=== PATIENT | male | born 1965 | race Caucasian/White ===

== ENCOUNTER 2019-12-07 20:23 | Emergency (ER) | payer OTHER, SELFPAY ==
[~2019-12-07] VITALS: Ht 182.9 cm; Wt 95.3 kg
[2019-12-07 20:28] VITALS: BP 145/83
--- NOTE | 2019-12-07 20:33 | NUR ---
PT W/C ASSISTED TO BED #1
[2019-12-07] MEDS ORDERED: KETOROLAC 30 MG/ML VIAL IVP ONE (20:45)
[2019-12-07] MEDS ORDERED: NACL 0.9% 1,000 ML IV ONE (20:45)
--- NOTE | 2019-12-07 21:12 | NUR ---
PT C/O OF HEADACHE WITH DIZZINESS X 5 DAYS. DENIES ANY N/T TO FACE, FACE IS SYMMETRICAL, NO SLURRED SPEECH, DENIES ANY VISION PROBLEMS, DENIES N/V/D, DENIES SOB. PT ABLE TO AMBULATE WITH STEADY GAIT. BED IN LOWEST POSITION, SIDERAIL UP X 1. MO MED HX NKA NO MEDS
--- NOTE | 2019-12-07 21:13 | NUR ---
NASAL SWAB DONE FOR COVID AND TAKEN TO LAB
--- NOTE | 2019-12-07 21:18 | NUR ---
PAIN IS NOW 6/10 TO HEAD, DOWN FROM 8/10
[2019-12-07] MEDS ORDERED: MORPHINE SULFATE 4 MG/ML SYR IVP ONE (21:35)
--- NOTE | 2019-12-07 22:10 | NUR ---
PT STATES HIS HEADACHE IS STILL HIGH AT 7/10. MED KURERA AWARE, NO FURTHER ORDERS RECEIVED
[2019-12-07 22:16] VITALS: BP 136/85
--- NOTE | 2019-12-07 22:18 | NUR ---
Patient discharged with v/s stable. Written and verbal after care instructions given and explained. Patient alert, oriented and verbalized understanding of instructions. Ambulatory with steady gait. All questions addressed prior to discharge. ID band removed. Patient advised to follow up with PMD. Rx of MOTRIN AND NORCO given. Patient educated on indication of medication including possible reaction and side effects. Opportunity to ask questions provided and answered.
== END 2019-12-07 22:18 | disposition home or self-care (01) ==
LOC: MED 20:23 → EEVIPCON 20:23 → MED 22:18
DX: R51 Headache (principal); F17.210 Nicotine dependence, cigarettes, uncomplicated; F15.10 Other stimulant abuse, uncomplicated; Z20.828 Contact with and (suspected) exposure to other viral communicable diseases
CPT/HCPCS: 96374; 96375; 99284; C9803; J1885; J2270; J7030; U0003; 36415

== ENCOUNTER 2019-12-10 23:20 | Inpatient (IN) | payer OTHER, SELFPAY ==
[~2019-12-10] VITALS: Ht 185.4 cm; Wt 95.3 kg
[2019-12-10 23:34] VITALS: BP 92/57
[2019-12-10] MEDS ORDERED: ACETAMINOPHEN EXTRA STRENGTH 500 MG TAB ONE (23:36)
--- NOTE | 2019-12-10 23:47 | NUR ---
53 Y/O MALE BIBA FROM HOME. PRESENTS TO ED, C/O FEVER, CHILLS AND BODY ACHES X1 WEEK. PT C/O GENERAL WEAKNESS R/T BODY ACHES. TAKES MOTRIN 800 AND NORCO 5 FOR PAIN. PT C/O NAUSEA BUT DENIES VOMITING. BS ACTIVE X4 QUADRANTS. PT DENIES ANY SOB/DIFFICULTY BREATHING. DENIES CHEST PAIN. FEVER DURING TRIAGE IS 101.2. ERMD MADE AWARE. WILL CONTINUE TO MONITOR.
--- NOTE | 2019-12-10 23:53 | NUR ---
PT ENDORSED THE USE OF METH "A NICKEL" LAST TUESDAY.
[2019-12-10] MEDS ORDERED: ACETAMINOPHEN EXTRA STRENGTH 500 MG TAB PO ONE (23:55)
[2019-12-11] MEDS ORDERED: NACL 0.9% 1,000 ML IV ONE
[2019-12-11] MEDS ORDERED: cefTRIAXone 1,000 MG VIAL ONE (00:02)
[2019-12-11 00:35] LABS: HEMATOCRIT 38.1 % (36-52); MEAN CORPUSCULAR HEMOGLOBIN 30 pg (27-31); MEAN CORPUSCULAR HGB CONC 34 g/dL (33-37); MEAN CORPUSCULAR VOLUME 86.6 fL (80-94); RED BLOOD CELL COUNT(AUTO) 4.41 MIL/uL (4.20-6.10); RED CELL DISTRIBUTION WIDTH 15.4 % (11.6-13.7)
[2019-12-11 00:53] LABS: ALBUMIN 1.7 g/dL (3.4-5.0); ANION GAP 15.7 (8-16); CARBON DIOXIDE 21.4 mmol/L (21-32); POTASSIUM 3.1 mmol/L (3.5-5.1); TOTAL BILIRUBIN 5.6 mg/dL (0.0-1.0)
[2019-12-11 00:54] LABS: LACTATE DEHYDROGENASE 235 U/L (85-227)
--- NOTE | 2019-12-11 00:57 | NUR ---
URINE COLLECTED AND SENT TO LAB AT THIS TIME
[2019-12-11 01:10] LABS: WHITE BLOOD COUNT (AUTO) 24.5 K/uL (4.8-10.8)
[2019-12-11 01:11] LABS: PLATELET COUNT (AUTO) 55 K/uL (140-450)
[2019-12-11 01:12] LABS: LYMPHOCYTES % (MANUAL) 7 % (20-46); MONOCYTES % (MANUAL) 2 % (5-12)
[2019-12-11 01:16] LABS: PROTHROMBIN TIME 11.4 secs (10.8-13.4)
[2019-12-11] MEDS ORDERED: NACL 0.9% 2,000 ML IV ONE (01:20)
[2019-12-11] MEDS ORDERED: HYDR-5122 PO (01:39)
[2019-12-11] MEDS ORDERED: IBUP-1842 PO (01:39)
[2019-12-11 01:59] LABS: APPEARANCE,URINE CLOUDY (CLEAR); BILIRUBIN,URINE 3+ (NEGATIVE); BLOOD, URINE 2+ (NEGATIVE); COLOR,URINE DARK YELLOW (YELLOW); LEUKOCYTE ESTERASE ,URINE 2+ (NEGATIVE); NITRITE, URINE NEGATIVE (NEGATIVE); PH,URINE 5.5 (5.0-9.0); UGLUCOSE NEGATIVE (NEGATIVE)
[2019-12-11 02:32] LABS: RBC,URINE TOO NUMEROUS TO COUN /HPF (0-5); WBC,URINE TOO MANY TO COUNT /HPF (0-5)
[2019-12-11 04:45] VITALS: BP 107/71
--- NOTE | 2019-12-11 04:45 | NUR ---
RECEIVED BEDSIDE REPORT FROM ED NURSE JEROMY. PATIENT WAS BROUGHT INTO UNIT VIA GURNEY. PATIENT IS ALERT AND ORIENTED. PATIENT IS AMBULATORY. NO SOB OR DISTRESS NOTED ON ROOM AIR. IV ACCESS ON RIGHT AC 20 GAUGE, PATENT AND INTACT. INITIAL ASSESSMENT DONE. SKIN IS INTACT. INITIAL VITAL SIGNS TAKEN. MRSA SWAB DONE AND SENT TO LAB. ORIENTED TO ROOM. ADMISSION ASSESSMENT DONE. BED IN LOW, BED LOCKED. SAFETY MEASURES IN PLACE. CALL LIGHT PLACED WITHIN PATIENT REACH. WILL CONTINUE TO MONITOR PATIENT.
--- NOTE | 2019-12-11 04:50 | NUR ---
PT ADMITTED TO [facility] RM #[id number]. TRANSFERRED VIA [facility] WITH DEBBY BAILON. PT AT STABLE CONDITION. REPORT GIVEN TO LB JUAREZ. TRANSFER OF CARE AT THIS TIME.
--- NOTE | 2019-12-11 05:05 | NUR ---
PAGED DR. WRAY FOR ADMISSION ORDERS. WILL WAIT FOR CALL BACK.
--- NOTE | 2019-12-11 05:35 | NUR ---
PAGED DR. WRAY AGAIN FOR ADMISSION ORDERS. WILL WAIT FOR CALL BACK.
--- NOTE | 2019-12-11 05:55 | NUR ---
PAGED FOR MD FOR 3RD TIME. DR. WRAY PICKED UP AND SAID HE WILL PUT IN ORDERS.
[2019-12-11] MEDS ORDERED: DOCUSATE SODIUM 250 MG GELCAP PO PRN (06:15)
[2019-12-11] MEDS ORDERED: POTASSIUM CHLORIDE 10 MEQ TABER PO PRN (06:15)
[2019-12-11] MEDS ORDERED: MAGNESIUM OXIDE 400 MG TAB PO PRN (06:15)
[2019-12-11] MEDS ORDERED: ACETAMINOPHEN 650 MG SUPP RC PRN (06:15)
[2019-12-11] MEDS ORDERED: MAG SULF 2000 MG/WATER PREMIX 50 ML IV PRN (06:15)
--- NOTE | 2019-12-11 06:40 | NUR ---
MAG SULF WAS ACCIDENTLY PULLED OUT OF OMNICELL BUT NOT GIVEN. CHARGE NURSE AWARE AND CO-SIGNED.
--- NOTE | 2019-12-11 06:44 | NUR ---
KDUR 40MEQ ADMINISTERED FOR POTASSIUM LEVEL OF 3.1. WILL CONTINUE TO MONITOR PATIENT.
--- NOTE | 2019-12-11 06:53 | NUR ---
PATIENT IN STABLE CONDITION. NO DISTRESS NOTED. VISIBLE CHEST RISE AND FALL NOTED. CALL LIGHT WITHIN PATIENT REACH. WILL ENDORSE TO AM SHIFT NURSE FOR CONTINUITY OF CARE.
--- NOTE | 2019-12-11 07:05 | NUR ---
RECEIVED REPORT FROM NIGHT NURSE FOR CONTINUITY OF CARE, PT IS AA0X4, PT IS STABLE, NO SIGNS OF DISTRESS NOTED, RESPIRATIONS ARE EVEN AND UNLABORED ON ROOM AIR, PT HAS RIGHT AC 20G SALINE LOCK, SAFETY MEASURES IN PLACE, PT AMBULATES, INTRODUCE SELF AND UPDATED WHITEBOARD, ALL NEEDS MET AT THIS TIME, WILL CONTINUE TO MONITOR, CALL LIGHT WITHIN REACH.
[2019-12-11 08:00] VITALS: BP 99/53
[2019-12-11] MEDS: HYDROcodone/APAP 5/325 MG 1 TAB TAB PO SCH ×3 (09:37→17:12)
--- NOTE | 2019-12-11 09:40 | NUR ---
ADMINISTERED SCHEDULED MEDICATION, MEDICATION EDUCATION GIVEN, PT VERBALIZED UNDERSTANDING, PT TOLERATED WELL, PT IS STABLE, NO SIGNS OF RESPIRATORY DISTRESS NOTED, RESPIRATIONS ARE EVEN AND UNLABORED ON ROOM AIR, CALL LIGHT WITHIN REACH.
--- NOTE | 2019-12-11 09:57 | NUR ---
NETWORK SECURITY CONSULTANT NOTE: Basic Screen: Yes High Risk DC Screen Valinda: KAREN BORDEN Home Relationship: FRIEND/ROOMMATE Pre-Admission Living Arrangements: Lives with Other Prior ADL Independent Current Home Health Name/Tel: N/A Current DME/02 Name/Tel: N/A Current Hospice Name/Tel: N/A Current Dialysis Name/Tel: N/A Healthcare Decision Maker: Patient Advance Directive No Physician Orders for Life Sustaining Treatment Form No Patient/Family Have Educational Needs No Discipline: Case Mgt/Social Svcs Tentative Discharge Plan/Destination: No Needs Identified Will require assistance post discharge: No Referred to Cable Hooker: No Tentative Discharge Plan Summary: PATIENT IS A 53-YEAR-OLD MALE ADMITTED FOR UTI. PATIENT HAS NO PERTINENT PMHX. PATIENT WAS ADMITTED FROM HOME WHERE HE HAS A ROOMMATE. SW CONTACTED PATIENT'S FRIEND KAREN BORDEN [phone]. PER KAREN, PATIENT IS INDEPENDENT WITH ALL ADLS AND REPORTS NO HISTORY OF SUBSTANCE ABUSE OR MENTAL HEALTH. TENTATIVE DISCHARGE PLAN IS FOR PATIENT TO RETURN HOME. NO FURTHER NEEDS IDENTIFIED. Signature: TRICIA ROMAN Date: Dec 11, 2019 Time: 09:53
--- NOTE | 2019-12-11 10:45 | NUR ---
PATIENT HAS BEEN SCREENED AND CATEGORIZED MODERATE NUTRITION RISK. PATIENT WILL BE SEEN WITHIN 3-5 DAYS OF ADMISSION. 12/13/19 12/15/[address]
--- NOTE | 2019-12-11 11:21 | NUR ---
PT ASLEEP IN BED, PT IS STABLE, NO SIGNS OF DISTRESS NOTED, RESPIRATIONS ARE EVEN AND UNLABORED ON ROOM AIR, CALL LIGHT WITHIN REACH.
[2019-12-11 12:00] VITALS: BP 115/65
--- NOTE | 2019-12-11 12:14 | NUR ---
RECEIVED TORB FOR NORMAL SALINE 75ML/H, IV FLUIDS, REGULAR DIET, WILL INPUT ORDERS AND CARRY OUT.
[2019-12-11] MEDS: NACL 0.9% 1,000 ML IV SCH (12:39)
--- NOTE | 2019-12-11 12:47 | NUR ---
ADMINISTERED SCHEDULED MEDICATION AND IV FLUIDS, MEDICATION EDUCATION GIVEN, PT VERBALIZED UNDERSTANDING, PT TOLERATED WELL, PT IS STABLE, CALL LIGHT WITHIN REACH.
--- NOTE | 2019-12-11 12:58 | NUR ---
DC PLANNIN YRS OLD MALE PATIENT WAS ADMITTED FROM HOME WITH A DX OF UTI ,URINE TEST 4+ BACTERIA. PT HAS NO MEDICAL HISTORY, AND SMOKER 1 PACK PER DAY. CXR NORMAL . ADMINISTERED IVF AND IV ABX WITH ROCEPHIN. DC PLAN TO GO HOME WHEN STABLE CM TO FOLLOW. Addendum: 12/13/19 at 1156 by Renee Holley CM DC PLANNING: WBC TRENDING DOWN TO 14.5 CONTINUE WITH IV ABX ROCEPHIN, IVF, IV ANTIEMETICS AND PAIN MANAGEMENT. MONITOR TEMPERATURE CURVE AND FOLLOW FINAL BLOOD AND URINE CULTURE RESULT. CONSULTED WITH OPAL CHAVEZ . DC PLAN AWAITING FOR FINAL CULTURE RESULTS. CM TO FOLLOW Addendum: 12/17/19 at 1350 by Renee Holley CM DC PLANNING: CALLED [facility] SPOKE WITH THE CM RACHEL AT [phone] UPDATED CLINICAL INFO AND THE ORDER FOR SNF PER RACHEL WILL CHECK THE SNF CONTRACTED TO THE INSURANCE AND CALL BACK . Addendum: 12/17/19 at 1613 by Renee Holley CM DC PLANNING: STILL WAITING FOR RACHEL CM TO CALL BACK ,UNABLE TO REACH HIM AND TO LEAVE A MESSAGE. THE PHONE HAS A BUSY TONE ALL DAY CALLED [facility] [phone] SPOKE WITH RICK ROMAN TO HELP ME BECAUSE THE SPELLING OF PATIENT IS WRONG AND UNABLE TO PROVIDE ANY INFORMATION. CM TO FOLLOW . FAXED [facility] CM TO FOLLOW Addendum: 12/17/19 at 6823 by Renee Holley CM DC PLANNING : CALLED [facility] [phone] SPOKE WITH KAMI ON ADMISSION STATED THEY ARE NOT ACCEPTING ANY PATIENT AT THIS TIME BECAUSE OF COVID. FAXED TO [facility] [phone] SPOKE WITH BERTIN STATED THEY ARE NOT ACCEPTING ANY PATIENT BECAUSE THEY HAVE NO ISO ROOM PER THEIR PROTOCOL THEY HAVE TO ISOLATE EVERYONE AND NO ISO BED. CM TO FOLLOW Addendum: 12/18/19 at 1217 by Renee Holley CM DC PLANNING: CALLED [phone] [facility] SPOKE WITH RACHEL FAULKNER REQUESTED WHETHER PT IS USING THE HMO OR THE PPO .CHECKED WITH [facility] ADMITTING CLARIFIED PT IS USING HMO. PER RACHEL 3 SNFS' CLOSE TO THE PT'S RESIDENT, AND [facility] AND [facility]. SPOKE WITH PT AND PT'S [phone] STATED DON'T WANT TO GO FAR AWAY FROM HOME. I EXPLAINED THAT IT IS DIFFICULT TO GET A BED IN SNF BECAUSE OF COVID-19 AND INSOLATION. WILL CHECK ALL THE SNF'S IF NOT FIND ONE PT WILL GO HOME WITH HOME HEALTH. FAXED TO [facility] [phone] SPOKE WITH EMERITA WAGNER ISO BED. FAXED TO [facility] FAXED ALL THE PAPER WORK TO [phone] [facility] SPOKE WITH ISABELA REVIEWING THE CASE AND WILL CALL BACK. Addendum: 12/18/19 at 1429 by Renee Holley CM DC PLANNING: RECEIVED A CALL FROM [facility] SPOKE WITH LIBBY GATES REVIEWING THE CASE AND WILL CALL BACK . PROVIDE CM'S NUMBER FOR AUTHORIZATION . CM TO FOLLOW Addendum: 12/18/19 at 1656 by Renee Holley CM DC PLANNING: CALLED [facility] [phone] SPOKE WITH [facility] ADMISSION COORDINATOR STILL WAITING AUTHORIZATION FROM [place] TO GET THE BED NUMBER. SPOKE WITH RACHEL GATES HE WILL CALL THEM PROVIDE THE ADMISSION NUMBER WILL FOLLOW UP . RACHEL FAULKNER PROVIDE AUTH #[id number] FOR [facility] TRANSPORT. Addendum: 12/18/19 at 1712 by Renee Holley CM DC PLANNING: PT IS ACCEPTED AT [facility] THE [address] , CAN GO TO ROOM 11 # TO GIVE REPORT [phone] [place] ARRANGED TRANSPORT WITH [facility] Addendum: 12/18/19 at 1747 by Renee Holley CM DC PLANNING ARRANGE TRANSPORT WITH [facility] [phone] SPOKE WITH LILLIANA LYN TIME WILL BE BETWEEN 6:30 TO 7:30 NOTIFIED MARGE CHARGE NURSE.
--- NOTE | 2019-12-11 14:51 | NUR ---
PT TRANSFERRED TO MED SURG, REMOVED TELEMONITOR AND INFORM PATIENT, PT WAS ASLEEP, PT IS STABLE, NO SIGNS OF DISTRESS NOTED, RESPIRATIONS ARE EVEN AND UNLABORED ON ROOM AIR, CALL LIGHT WITHIN REACH.
--- NOTE | 2019-12-11 15:55 | NUR ---
PT ASLEEP IN BED, PT IS STABLE, NO SIGNS OF DISTRESS NOTED, RESPIRATIONS ARE EVEN AND UNLABORED ON ROOM AIR, CALL LIGHT WITHIN REACH.
[2019-12-11 16:00] VITALS: BP 106/65
--- NOTE | 2019-12-11 17:13 | NUR ---
ADMINISTERED SCHEDULED MEDICATION, MEDICATION EDUCATION GIVEN, PT VERBALIZED UNDERSTANDING, PT TOLERATED WELL, PT IS STABLE, NO SIGNS OF DISTRESS NOTED, RESPIRATIONS ARE EVEN AND UNLABORED ON ROOM AIR, CALL LIGHT WITHIN REACH.
--- NOTE | 2019-12-11 19:30 | NUR ---
GAVE REPORT TO NIGHT NURSE FOR CONTINUITY OF CARE, PT IS STABLE
--- NOTE | 2019-12-11 19:35 | NUR ---
RECEIVED PT SLEEPING ON BED, EASILY AROUSABLE, DENIES ANY PAIN, IVF INFUSING WELL, SAFETY MEASURES IN PLACE, CALL LIGHT WITHIN REACH.
--- NOTE | 2019-12-11 21:42 | NUR ---
PT ASLEEP, NO DISTRESS NOTED, REPORT GIVEN TO ALTON NEGRETE FOR CONTINUITY OF CARE.
--- NOTE | 2019-12-11 21:43 | NUR ---
RECD. RESTING IN BED, SLEEPING COMFORTABLY. RESPIRATION EVEN AND UNLABORED. IV OF NS AT 75 ML/HR INFUSING RIGHT AC G20. NO APPEARANCE OF PAIN NOTED 0/10.
--- NOTE | 2019-12-11 22:00 | NUR ---
Patient's Plan of Care was discussed and reviewed with PURIFYING PLANT OPERATOR: PENELOPE LEAL
[2019-12-11] MEDS: cefTRIAXone 2,000 MG in DEXTROSE 5% 100 ML IV SCH (22:38)
--- NOTE | 2019-12-12 | NUR ---
STILL SLEEPING COMFORTABLY IN BED.
[2019-12-12] MEDS: NACL 0.9% 1,000 ML IV SCH ×3 (01:40→21:19)
--- NOTE | 2019-12-12 03:00 | NUR ---
AWAKE, APPLE GIVEN REQUESTED. NOTED URINE IN THE URINAL, LOOKS CONCENTRATED. ENCOURAGED TO DRINK MORE FLUIDS, CRANBERRY JUICES AND WATER GIVEN.
[2019-12-12 06:15] VITALS: BP 147/82
[2019-12-12] MEDS: ACETAMINOPHEN 325 MG TAB PO PRN ×3 (06:21→23:37)
[2019-12-12 07:07] LABS: BASOPHILS % (AUTO) 0.3 % (0.0-2.0); EOSINOPHILS % (AUTO) 0.2 % (0.0-4.0); HEMATOCRIT 34.8 % (36-52); HEMOGLOBIN 11.8 g/dL (12.0-18.0); LYMPHOCYTES % (AUTO) 7.1 % (20.5-51.1); MEAN CORPUSCULAR HEMOGLOBIN 30 pg (27-31); MEAN CORPUSCULAR HGB CONC 34 g/dL (33-37); MEAN CORPUSCULAR VOLUME 87.1 fL (80-94); MONOCYTES % (AUTO) 7.1 % (1.7-9.3); NEUTROPHILS # (AUTO) 12.4 K/uL (1.8-7.7); NEUTROPHILS % (AUTO) 85.3 % (42.2-75.2); PLATELET COUNT (AUTO) 81 K/uL (140-450); RED BLOOD CELL COUNT(AUTO) 3.99 MIL/uL (4.20-6.10); RED CELL DISTRIBUTION WIDTH 15.2 % (11.6-13.7); WHITE BLOOD COUNT (AUTO) 14.5 K/uL (4.8-10.8)
--- NOTE | 2019-12-12 07:26 | NUR ---
RECEIVED PATIENT FROM RUN LEAD NURSE FOR CONTINUITY OF CARE. PATIENT IS CURRENTLY ASLEEP. RESPIRATIONS EVEN AND UNLABORED, ROOM AIR. HAS FEVER PER PM NURSE, 100.6. TYLENOL WAS GIVEN. VISIBLE CHEST RISE AND FALL NOTED. ON MED-SURGE. ABDOMEN SOFT AND NONTENDER. REGULAR DIET. SKIN WARM, DRY, AND INTACT, IV RIGHT AC G20, RUNNING NS AT 70 ML/HR. UNIVERSAL FALL PRECAUTION. BED IN LOW POSITION. CALL LIGHT IS WITHIN REACH. WILL CONTINUE TO MONITOR.
--- NOTE | 2019-12-12 07:44 | NUR ---
PM NURSE CHECKED TEMPERATURE AGAIN, IT'S 100.0. COOLING MEASURES IN PLACE. PATIENT IS EATING BREAKFAST AT THIS TIME.
[2019-12-12 08:00] VITALS: BP 125/79
[2019-12-12 08:17] LABS: ANION GAP 13.9 (8-16); CARBON DIOXIDE 22.4 mmol/L (21-32); CREATININE 1.4 mg/dL (0.6-1.3); POTASSIUM 3.3 mmol/L (3.5-5.1)
[2019-12-12] MEDS: HYDROcodone/APAP 5/325 MG 1 TAB TAB PO SCH ×3 (08:18→17:01)
--- NOTE | 2019-12-12 08:18 | NUR ---
GIVEN NORCO MAK PER MD ORDER. EXPLAINED MEDICATION. COOLING MEASURES GIVEN AGAIN. WILL REASSESS TEMPERATURE AND PAIN.
[2019-12-12 08:24] LABS: ALBUMIN 1.4 g/dL (3.4-5.0); TOTAL BILIRUBIN 4.6 mg/dL (0.0-1.0)
--- NOTE | 2019-12-12 09:47 | NUR ---
RECHECKED TEMPERATURE. 98.1, ORALLY. WILL REASSESS TEMPERATURE AGAIN.
--- NOTE | 2019-12-12 11:15 | NUR ---
RECHECKED TEMPERATURE - 98.9, ORALLY. NO FEVER. WILL CONTINUE TO MONITOR.
--- NOTE | 2019-12-12 12:33 | NUR ---
GIVEN SCHEDULED NORCO. RECHECKED TEMP 100.0. GIVEN TYLENOL PO. COOLING MEASURES IN PLACE.
--- NOTE | 2019-12-12 12:38 | NUR ---
RECEIVED A VERBAL ORDER FROM DR. URBINA FOR 40 MEQ KDUR TO COVER K LEVEL OF 3.3. WILL CARRY OUT ORDER. IS ON THE PHONE SPEAKING WITH
[2019-12-12] MEDS ORDERED: POTASSIUM CHLORIDE 10 MEQ TABER PO SCH (13:00)
--- NOTE | 2019-12-12 13:16 | NUR ---
GIVEN 40 MEQ KDUR FOR POTASSIUM LEVEL 3.3; EXPLAINED MED TO PT, PT VERBALIZED UNDERSTANDING. ALSO COOLING MEASURES GIVEN.
--- NOTE | 2019-12-12 13:30 | NUR ---
RECHECKED TEMPERATURE: 99.7. COOLING MEASURES GIVEN. WILL RECHECK TEMP AGAIN
--- NOTE | 2019-12-12 14:57 | NUR ---
RECHECKED TEMPERATURE - 98.9. NO FEVER. WILL CONTINUE TO MONITOR
--- NOTE | 2019-12-12 15:25 | NUR ---
RETURNED FROM CT SCAN
--- NOTE | 2019-12-12 16:26 | NUR ---
RECHECKED TEMPERATURE: 98.4, TEMPORAL SCAN. AFEBRILE.
--- NOTE | 2019-12-12 16:45 | NUR ---
TRANSFERRED FROM ROOM 120A TO 119A.
--- NOTE | 2019-12-12 17:01 | NUR ---
GIVEN NORCO SCHEDULED.
--- NOTE | 2019-12-12 18:35 | NUR ---
RECHECKED TEMPERATURE - 99.4. COOLING MEASURES IN PLACE.
--- NOTE | 2019-12-12 19:10 | NUR ---
ENDORSED PATIENT TO THE VINYL FLOORING INSTALLER NURSE FOR CONTINUITY OF CARE. PATIENT IS ASLEEP AT THIS TIME. PATIENT IS IN STABLE CONDITION.
[2019-12-12] MEDS: cefTRIAXone 2,000 MG in DEXTROSE 5% 100 ML IV SCH (21:19)
--- NOTE | 2019-12-12 23:40 | NUR ---
PATIENT HAS TEMPERATURE OF 101.8, PRN TYLENOL 650 MG PO GIVEN ORDERED. COOLING MEASURES ALSO PROVIDED AND INSTRUCTED THE PT NOT TO BUNDLE HIMSELF WITH THE SHEETS AND BLANKET TO COOL DOWN. PT VERBALIZED UNDERSTANDING. WILL CONTINUE TO MONITOR THE PT. CALL LIGHT WITHIN REACH.
[2019-12-13] VITALS: BP 136/87
--- NOTE | 2019-12-13 00:40 | NUR ---
RE CHECKED PT TEMPERATURE AFTER THE TYLENOL AND COOLING MEASURE. PT LATEST TEMP IS NOW 100.3. WILL CONTINUE COOLING MEASURES AND INSTRUCTED PT NOT TO BUNDLE UP WITH BLANKET AND ALSO TO DRINK MORE FLUID. PT COMPLIANT WITH CARE. WILL CONTINUE TO MONITOR.
--- NOTE | 2019-12-13 03:40 | NUR ---
PT ASLEEP AND NO COMPLAIN AT THIS TIME. CALL LIGHT WITHIN REACH.
--- NOTE | 2019-12-13 05:30 | NUR ---
PT WOKE UP AND ASKED FOR COFFEE WITH CREAMER AND SUGAR. RE CHECKED THE PT TEMPERATURE-99.1. NO COMPLAIN AT THIS TIME. WILL CONTINUE POC.
--- NOTE | 2019-12-13 06:21 | NUR ---
PT STABLE AND NOT IN ANY DISTRESS. NO COMPLAIN AT THIS TIME. ALL NEEDS ATTENDED. CALL LIGHT WITHIN REACH. WILL ENDORSE THE PT TO THE ONCOMING RN FOR CONTINUITY OF CARE.
[2019-12-13 06:41] LABS: BASOPHILS # (AUTO) 0.1 K/uL (0.00-0.22); BASOPHILS % (AUTO) 0.4 % (0.0-2.0); EOSINOPHILS % (AUTO) 0.2 % (0.0-4.0); HEMATOCRIT 34.4 % (36-52); HEMOGLOBIN 11.6 g/dL (12.0-18.0); LYMPHOCYTES # (AUTO) 1.1 K/uL (2.0-11.5); LYMPHOCYTES % (AUTO) 8.1 % (20.5-51.1); MEAN CORPUSCULAR HEMOGLOBIN 30 pg (27-31); MEAN CORPUSCULAR HGB CONC 34 g/dL (33-37); MEAN CORPUSCULAR VOLUME 87.7 fL (80-94); MONOCYTES # (AUTO) 1.2 K/uL (0.8-1.0); MONOCYTES % (AUTO) 8.9 % (1.7-9.3); NEUTROPHILS # (AUTO) 11.4 K/uL (1.8-7.7); NEUTROPHILS % (AUTO) 82.4 % (42.2-75.2); PLATELET COUNT (AUTO) 121 K/uL (140-450); RED BLOOD CELL COUNT(AUTO) 3.92 MIL/uL (4.20-6.10); RED CELL DISTRIBUTION WIDTH 15.5 % (11.6-13.7); WHITE BLOOD COUNT (AUTO) 13.8 K/uL (4.8-10.8)
--- NOTE | 2019-12-13 07:05 | NUR ---
RECEIVED REPORT FROM AIRCRAFT METALSMITH NURSE. PT IS CURRENTLY LAYING IN BED ASLEEP WITH NO NO SIGNS OF DISTRESS NOTED. PT IS ALERT ORIENTATED TO PERSON, PLACE, TIME, AND DATE. RESPIRATIONS ARE EVEN AND UNLABORED ON ROOM AIR. SKIN IS INTACT WITH, IV PATENT, ASYMPTOMATIC, AND INFUSING PER ORDER. SAFETY MEASURES IN PLACE, BED IS IN LOW SEMI-FOWLERS POSITION, CALL LIGHT WITHIN REACH AND WILL CONTINUE TO MONITOR.
[2019-12-13 07:21] LABS: ALBUMIN 1.5 g/dL (3.4-5.0); ANION GAP 12.5 (8-16); CARBON DIOXIDE 24.7 mmol/L (21-32); CREATININE 1.1 mg/dL (0.6-1.3); POTASSIUM 4.2 mmol/L (3.5-5.1); TOTAL BILIRUBIN 4.2 mg/dL (0.0-1.0)
[2019-12-13] MEDS: HYDROcodone/APAP 5/325 MG 1 TAB TAB PO SCH ×3 (08:41→16:49)
--- NOTE | 2019-12-13 08:43 | NUR ---
ADMINISTERED MEDICATIONS PER ORDER AND TOLERATED WELL. PT STATES THAT HE WANTS CHEERIOS CEREAL WITH MILK AND ICE. SAFETY MEASURES IN PLACE AND WILL CONTINUE TO MONITOR.
--- NOTE | 2019-12-13 10:15 | NUR ---
PT STATES THAT HE FEELS NAUSEOUS AND HAS BEEN DRY HEAVING. PT REQUESTED SPRITE AND ICE TO SETTLE HIS STOMACH. SAFETY MEASURES IN PLACE AND WILL CONTINUE TO MONITOR.
--- NOTE | 2019-12-13 12:01 | NUR ---
PT IS CURRENTLY LAYING DOWN IN BED WITH NO SIGNS OF DISTRESS AT THIS TIME. PT WAS CHANGED AND GIVEN SPONGE BATH, TOLERATED WELL. SAFETY MEASURES IN PLACE AND WILL CONTINUE TO MONITOR.
[2019-12-13] MEDS: ONDANSETRON 4 MG/2 ML VIAL IVP PRN ×2 (13:10→17:44)
--- NOTE | 2019-12-13 13:12 | NUR ---
ADMINISTERED ZOFRAN FOR NAUSEA AND VOMITING. PT REFUSED HIS NORCO HE STATES THAT ITS MAKING HIM NAUSEOUS. SAFETY MEASURES IN PLACE AND WILL CONTINUE OT MONITOR.
--- NOTE | 2019-12-13 14:15 | NUR ---
PT IS CURRENTLY LAYING IN BED WITH NO SIGNS OF DISTRESS AT THIS TIME. PT STATED THAT NAUSEA FEELS BETTER AFTER ZOFRAN WAS GIVEN. SAFETY MEASURES IN PLACE AND WILL CONTINUE TO MONITOR.
[2019-12-13 16:00] VITALS: BP 119/81
[2019-12-13] MEDS: ACETAMINOPHEN 325 MG TAB PO PRN (16:47)
--- NOTE | 2019-12-13 16:51 | NUR ---
PT CURRENTLY HAS A FEVER OF 102, TYLENOL HAS BEEN ADMINISTERED. PT REFUSED NORCO. SAFETY MEASURES IN PLACE AND WILL RECHECK TEMPERATURE IN 30 MIN[address]ES. SAFETY MEASURES IN PLACE AND WILL CONTINUE OT MONITOR.
[2019-12-13] MEDS: NACL 0.9% 1,000 ML IV SCH (17:40)
[2019-12-13] MEDS: CYCLOBENZAPRINE 10 MG TAB PO SCH (17:43)
--- NOTE | 2019-12-13 17:50 | NUR ---
ADMINISTERED ZOFRAN FOR NAUSEA AND VOMITING, PT ASKED FOR ICE PACKS WELL. TEMPERATURE IS NOW 101.0 ADMINISTERED OTHER MEDICATIONS PER ORDER AND TOLERATED WELL. WILL CONTINUE TO CLOSELY MONITOR.
--- NOTE | 2019-12-13 18:44 | NUR ---
PT IS CURRENTLY LAYING DOWN IN BED TRYING TO SLEEP. TEMPERATURE IS NOW 99.1. PT DOES NOT COMPLAIN OF ANY PAIN AT THIS TIME. WILL ENDORSE TO NIGHT SHIFTY NURSE FOR CONTINUITY OF CARE.
--- NOTE | 2019-12-13 19:20 | NUR ---
RECEIVED BEDSIDE SHIFT REPORT FROM AM NURSE KATE FOR CONTINUITY OF CARE. PATIENT AWAKE AND ALERT NO SIGNS OF DISTRESS NOTED. RESPIRATIONS EVEN AND UNLABORED ON RA. IV SITE ASSESSED AND INFUSING WITHOUT DIFFICULTY. WILL CONTINUE TO MONITOR
[2019-12-13] MEDS: cefTRIAXone 2,000 MG in DEXTROSE 5% 100 ML IV SCH (22:04)
--- NOTE | 2019-12-13 22:04 | NUR ---
ADMINISTERED 2200 MEDICATION. PATIENT TOLERATED WELL NO SIGNS OF DISTRESS NOTED. WILL CONTINUE TO MONITOR
[2019-12-14] VITALS: BP 134/87
--- NOTE | 2019-12-14 00:30 | NUR ---
PATIENT CALLED ON THE CALL LIGHT. PATIENT HAD HICCUPS AND STATES HE WAS FEELING LIKE HE COULDNT CATCH HIS BREATH A RESULT. OBTAINED SPO2 OF 97% ADJUSTED PATIENT IN BED ELEVATED HOB TO IMPROVE OXYGENATION. PATIENT STATES HE FEELS LIKE ITS CAUSING INDIGESTION ADMINISTERED PRN ZOFRAN. WILL REASSESS PATIENT FOR IMPROVEMENT
[2019-12-14] MEDS: ONDANSETRON 4 MG/2 ML VIAL IVP PRN ×2 (00:53→05:03)
--- NOTE | 2019-12-14 04:57 | NUR ---
PATIENT COMPLAINED OF NAUSEA. ADMINISTERED PRN ZOFRAN PER MD ORDER. PATIENT TOLERATED WELL. NO SIGNS OF DISTRESS NOTED WILL CONTINUE TO MONITOR
--- NOTE | 2019-12-14 05:32 | NUR ---
PATIENT COMPLAINED OF ABD DISTENSION, GAS PRESSURE IN ABD. PT STATES HE HAS NOT HAD A BM IN OVER 4 DAYS. PAGED FOR ORDERS
--- NOTE | 2019-12-14 06:11 | NUR ---
PATIENT HAD ONE LARGE BOWEL MOVEMENT THIS AM STATES SOME OF THE PRESSURE RELIEVED SLIGHLTY BUT STILL IS EXPERIENCING DISCOMFORT
--- NOTE | 2019-12-14 06:20 | NUR ---
CALLED BACK TO GIVE ORDER FOR ONE TIME DOSE OF LACTULOSE. MEDICATION ENTERED WAITING FOR APPROVAL ROM PHARM
[2019-12-14] MEDS ORDERED: LACTULOSE 20 GM/30 ML UDC PO SCH (06:30)
[2019-12-14] MEDS: NACL 0.9% 1,000 ML IV SCH ×2 (07:00→20:20)
--- NOTE | 2019-12-14 07:15 | NUR ---
ENDORSED PATIENT TO DAYSHIFT NURSE FOR CONTINUITY OF CARE PATIENT IN STABLE CONDITION
[2019-12-14 07:19] LABS: BASOPHILS # (AUTO) 0.1 K/uL (0.00-0.22); BASOPHILS % (AUTO) 0.3 % (0.0-2.0); EOSINOPHILS % (AUTO) 0.2 % (0.0-4.0); HEMATOCRIT 32.6 % (36-52); LYMPHOCYTES # (AUTO) 1.1 K/uL (2.0-11.5); LYMPHOCYTES % (AUTO) 5.7 % (20.5-51.1); MEAN CORPUSCULAR HEMOGLOBIN 30 pg (27-31); MEAN CORPUSCULAR HGB CONC 34 g/dL (33-37); MEAN CORPUSCULAR VOLUME 87.7 fL (80-94); MONOCYTES # (AUTO) 1.5 K/uL (0.8-1.0); MONOCYTES % (AUTO) 7.6 % (1.7-9.3); NEUTROPHILS # (AUTO) 16.6 K/uL (1.8-7.7); NEUTROPHILS % (AUTO) 86.2 % (42.2-75.2); PLATELET COUNT (AUTO) 201 K/uL (140-450); RED BLOOD CELL COUNT(AUTO) 3.71 MIL/uL (4.20-6.10); RED CELL DISTRIBUTION WIDTH 15.5 % (11.6-13.7); WHITE BLOOD COUNT (AUTO) 19.2 K/uL (4.8-10.8)
--- NOTE | 2019-12-14 07:26 | NUR ---
RECEIVED BEDSIDE REPORT FROM EMERGENCY WORKER RN FOR CONTINUITY OF CARE. PT IS AAOX4. PT UNCOOPERATIVE AT TIMES. NOT USING CALL LIGHT PER EMERGENCY WORKER RN. PT ON RA. SKIN INTACT. PT HAS IV IN THE R AC 20G INFUSING NS @ 75ML/HR. DISCUSSED POC WITH PT AND PT VERBALIZED UNDERSTANDING BUT WILL NEED REENFORCEMENT THROUGHOUT THE SHIFT. SAFETY MEASURES IN PLACE. INSTRUCTED PT ON IMPORTANCE OF NEEDING TO USE CALL LIGHT. VERY UNSTEADY GAIT AT THIS TIME. PT VERBALIZED UNDERSTANDING. BED IN LOW POSITION, CALL LIGHT WITHIN PLACE. WILL ROUND FREQUENTLY THROUGHOUT THE SHIFT.
[2019-12-14 07:59] LABS: ALBUMIN 1.5 g/dL (3.4-5.0); ANION GAP 12.2 (8-16); CARBON DIOXIDE 24.8 mmol/L (21-32); CREATININE 1.3 mg/dL (0.6-1.3); TOTAL BILIRUBIN 3.2 mg/dL (0.0-1.0)
[2019-12-14 08:00] VITALS: BP 136/76
[2019-12-14] MEDS: HYDROcodone/APAP 5/325 MG 1 TAB TAB PO SCH ×4 (09:00→17:00)
[2019-12-14] MEDS: CYCLOBENZAPRINE 10 MG TAB PO SCH ×3 (09:07→17:37)
--- NOTE | 2019-12-14 09:12 | NUR ---
ADMINISTERED MORNING MEDS TO PT. PT TOLERATED WELL. ALL NEEDS MET. WILL CONTINUE TO ROUND FREQUENTLY ON PT. BED IN LOW POSITION, CALL LIGHT WITHIN REACH.
--- NOTE | 2019-12-14 11:21 | NUR ---
PT TRYING TO GET OUT OF BED WITHOUT USING CALL LIGHT. INSTRUCTED PT TO STAY IN BED AND PER PT, PT UNABLE TO AMBULATE SELF AT THIS TIME. VERY UNSTEADY GAIT. PT VERBALIZED UNDERSTANDING. ALL NEEDS MET AT THIS TIME.
--- NOTE | 2019-12-14 13:06 | NUR ---
PT RESTING IN BED. ALL NEEDS MET. WILL CONTINUE TO ROUND FREQUENTLY ON PT. BED IN LOW POSITION, CALL LIGHT WITHIN REACH.
--- NOTE | 2019-12-14 13:15 | NUR ---
12/14/19 RD INITIAL ASSESSMENT COMPLETED PLEASE REFER TO NUTRITION ASSESSMENT UNDER CARE ACTIVITY FOR ESTIMATED NUTRITIONAL NEEDS. 1. CONTINUE REGULAR DIET TOLERATED 2. RECOMMEND ENSURE BID 3. ENCOURAGE PO INTAKE 4. RD TO FOLLOW-UP 2-3 DAYS, HIGH RISK FERNANDO BRIZUELA, RD
[2019-12-14] MEDS ORDERED: SIMETHICONE 80 MG TAB.CHEW PO PRN (13:45)
--- NOTE | 2019-12-14 15:21 | NUR ---
PT RESTING IN BED. ALL NEEDS MET.
[2019-12-14 16:00] VITALS: BP 127/80
--- NOTE | 2019-12-14 17:17 | NUR ---
PT SLEEPING. ALL NEEDS MET.
[2019-12-14] MEDS: PIPERACILLIN/TAZOBACTAM 3.375 GM in DEXTROSE 5% 50 ML IV SCH (17:37)
--- NOTE | 2019-12-14 19:35 | NUR ---
RECEIVED BEDSIDE SHIFT REPORT FROM DAYSHIFT NURSE FOR CONTINUITY OF CARE. PATIENT RESTING IN BED. NO SIGNS OF DISTRESS NOTED. RESPIRATIONS EVEN AND UNLABORED ON RA. IV ASSESSED PATENT AND INFUSING WITHOUT DIFFICULTY. SAFETY MEASURES IN PLACE AND CALL LIGHT WITHIN REACH. WILL CONTINUE TO MONITOR
--- NOTE | 2019-12-14 19:45 | NUR ---
ENDORSED PT TO PRESS SUPERVISOR FOR CONTINUITY OF CARE. PT IN STABLE CONDITION AT THIS TIME.
--- NOTE | 2019-12-14 21:30 | NUR ---
ROUNDING, PATIENT RESTING IN BED NO SIGNS OF DISTRESS NOTED. SAFETY MEASURES IN PLACE AND CALL LIGHT WITHIN REACH. WILL CONTINUE TO MONITOR
--- NOTE | 2019-12-14 23:58 | NUR ---
ROUNDING. PATIENT RESTING. EASILY AWAKENED. NO SIGNS OF DISTRESS NOTED. RESPIRATIONS EVEN AND UNLABORED ON RA. CALL LIGHT WITHIN REACH WILL CONTINUE TO MONITOR
[2019-12-15] VITALS: BP 135/63
[2019-12-15] MEDS: PIPERACILLIN/TAZOBACTAM 3.375 GM in DEXTROSE 5% 50 ML IV SCH ×4 (00:18→19:17)
--- NOTE | 2019-12-15 00:18 | NUR ---
MEDICATED PATIENT WITH 0000 MEDICATION. PATIENT TOLERATED WELL. NO SIGNS OF DISTRESS NOTED. RESPIRATIONS EVEN AND UNLABORED ON RA. SAFETY MEASURES IN PLACE AND CALL LIGHT WITHIN REACH. WILL CONTINUE TO MONITOR
--- NOTE | 2019-12-15 02:30 | NUR ---
ROUNDING, PATIENT RESTING. NO SIGNS OF DISTRESS NOTED. RESPIRATIONS EVEN AND UNLABORED ON RA. EASILY AROUSABLE TO SOUND. SAFETY MEASURES IN PLACE AND CALL LIGHT WITHIN REACH WILL CONTINUE TO MONITOR
--- NOTE | 2019-12-15 04:32 | NUR ---
ROUNDING. ASSISTED SUCTION DRUM DRIER OPERATOR WITH AM ADL'S. PATIENT AWAKE IN BED NO SIGNS OF DISTRESS NOTED. WILL CONTINUE TO MONITOR
--- NOTE | 2019-12-15 06:30 | NUR ---
ADMINISTERED 0600 MEDICATION TO PATIENT. PATIENT TOLERATED WELL NO SIGNS OF DISTRESS NOTED
[2019-12-15 06:49] LABS: BASOPHILS % (AUTO) 0.2 % (0.0-2.0); EOSINOPHILS % (AUTO) 0.3 % (0.0-4.0); HEMATOCRIT 32.2 % (36-52); HEMOGLOBIN 10.7 g/dL (12.0-18.0); LYMPHOCYTES # (AUTO) 1.1 K/uL (2.0-11.5); MEAN CORPUSCULAR HEMOGLOBIN 29 pg (27-31); MEAN CORPUSCULAR HGB CONC 33 g/dL (33-37); MEAN CORPUSCULAR VOLUME 87.9 fL (80-94); MONOCYTES # (AUTO) 1.7 K/uL (0.8-1.0); MONOCYTES % (AUTO) 9.1 % (1.7-9.3); NEUTROPHILS # (AUTO) 15.6 K/uL (1.8-7.7); NEUTROPHILS % (AUTO) 84.4 % (42.2-75.2); PLATELET COUNT (AUTO) 301 K/uL (140-450); RED BLOOD CELL COUNT(AUTO) 3.66 MIL/uL (4.20-6.10); RED CELL DISTRIBUTION WIDTH 15.6 % (11.6-13.7); WHITE BLOOD COUNT (AUTO) 18.6 K/uL (4.8-10.8)
[2019-12-15 07:08] LABS: ALBUMIN 1.6 g/dL (3.4-5.0); ANION GAP 11.4 (8-16); CARBON DIOXIDE 25.6 mmol/L (21-32); TOTAL BILIRUBIN 2.4 mg/dL (0.0-1.0)
--- NOTE | 2019-12-15 07:19 | NUR ---
ENDORSED PATIENT TO DAYSHIFT NURSE AT BEDSIDE FOR CONTINUITY OF CARE. PATIENT IN STABLE CONDITION
--- NOTE | 2019-12-15 07:20 | NUR ---
RECEIVED BEDSIDE SHIFT REPORT FROM RADIATION CONTROL HEALTH PHYSICIST NURSE FOR CONTINUATION OF CARE.
[2019-12-15 08:00] VITALS: BP 132/87
--- NOTE | 2019-12-15 09:00 | NUR ---
RESTING IN BED, LETHARGIC, SKIN HAS A JAUNDICED TINT TO IT. SCLERA IS CLEAR. PATIENT IS AA0X3. HE DENIES PAIN AT THIS TIME. IV FLUID RUNNING AT 75 ML/HR. WILL CONTINUE TO MONITOR.
[2019-12-15] MEDS: CYCLOBENZAPRINE 10 MG TAB PO SCH ×3 (10:18→17:00)
[2019-12-15] MEDS: HYDROcodone/APAP 5/325 MG 1 TAB TAB PO SCH ×3 (10:18→17:00)
[2019-12-15] MEDS: NACL 0.9% 1,000 ML IV SCH ×2 (10:19→23:06)
--- NOTE | 2019-12-15 10:57 | NUR ---
MEDICATION TOLERATED WELL. PATIENT SPOKE WITH REGARDING DC PLANS. PATIENT IS LETHARGIC. WILL CONTINUE TO MONITOR.
--- NOTE | 2019-12-15 13:00 | NUR ---
PATIENT REFUSES SCHEDULED PAIN MEDICATION, DENIES PAIN. PATIENT IS FATIGUED AND WEAK. EDUCATED PATIENT CONTROL AND [employer] LIGHT, VERBALIZED UNDERSTANDING. WILL CONTINUE TO MONITOR.
[2019-12-15 16:00] VITALS: BP 115/64
--- NOTE | 2019-12-15 18:00 | NUR ---
IV ZOSYN HANGING, TOLERATING WELL. REPORTS FEELING CHILLS. TEMP IS NORMAL. WILL CONTINUE TO MONITOR.
--- NOTE | 2019-12-15 19:18 | NUR ---
BEDSIDE SHIFT REPORT GIVEN TO HOME AID NURSE FOR CONTINUATION OF CARE.
--- NOTE | 2019-12-15 19:19 | NUR ---
RECEIVED BEDSIDE SHIFT REPORT FROM DAYSHIFT NURSE FOR CONTINUITY OF CARE. PATIENT RESTING IN BED. NO SIGNS OF DISTRESS NOTED. RESPIRATIONS EVEN AND UNLABORED ON RA. PATIENT IS AA0X3. HE DENIES PAIN AT THIS TIME. IV FLUID RUNNING AT 75 ML/HR. R AC G 20, INTACT. IV ASSESSED PATENT AND INFUSING WITHOUT DIFFICULTY. SAFETY MEASURES IN PLACE AND CALL LIGHT WITHIN REACH. WILL CONTINUE TO MONITOR
--- NOTE | 2019-12-15 21:00 | NUR ---
PT'S BROTHER FROM [employer] CALLED UP LEFT NO. [phone] BUT BEEN CALLING HIM 3X. THROUGH THE NO. HE GAVE. HE WANTS AN UPDATE. TRIED TO CALL THE NO. BUT THE NO. IS BUSY. WILL TRY TO CALL AGAIN. OR WILL WAIT FOR HIS CALL.
--- NOTE | 2019-12-15 22:12 | NUR ---
PT RESTING. NO COMPLAINTS AT THIS TIME. NO RESPIRATORY DISTRESS
--- NOTE | 2019-12-15 23:45 | NUR ---
PT SLEEPING, PT ALWAYS MOVES HIS RIGHT ARM; IV GOES OFF, REPOSITIOHED THE ARM, FLUSHED THE IV SITE. AND RESTARTED THE PUMP.
[2019-12-16] VITALS: BP 133/77
[2019-12-16] MEDS: PIPERACILLIN/TAZOBACTAM 3.375 GM in DEXTROSE 5% 50 ML IV SCH ×4 (00:02→18:56)
--- NOTE | 2019-12-16 02:12 | NUR ---
PT SLEEPING. NO COMPLAINTS,, NOT IN RESPIRATORY DISTRESS. WILL CONTINUE TO MONITOR
--- NOTE | 2019-12-16 04:16 | NUR ---
PT SLEEPING, NO BM. BIT HAD SEVERAL URINE OUTPUTS
[2019-12-16 06:56] LABS: BASOPHILS % (AUTO) 0.2 % (0.0-2.0); EOSINOPHILS # (AUTO) 0.1 K/uL (0-0.4); EOSINOPHILS % (AUTO) 0.4 % (0.0-4.0); HEMATOCRIT 29.1 % (36-52); LYMPHOCYTES # (AUTO) 1.3 K/uL (2.0-11.5); LYMPHOCYTES % (AUTO) 7.4 % (20.5-51.1); MEAN CORPUSCULAR HEMOGLOBIN 30 pg (27-31); MEAN CORPUSCULAR HGB CONC 34 g/dL (33-37); MEAN CORPUSCULAR VOLUME 87.8 fL (80-94); MONOCYTES # (AUTO) 1.2 K/uL (0.8-1.0); MONOCYTES % (AUTO) 6.6 % (1.7-9.3); NEUTROPHILS # (AUTO) 15.5 K/uL (1.8-7.7); NEUTROPHILS % (AUTO) 85.4 % (42.2-75.2); PLATELET COUNT (AUTO) 422 K/uL (140-450); RED BLOOD CELL COUNT(AUTO) 3.32 MIL/uL (4.20-6.10); RED CELL DISTRIBUTION WIDTH 14.8 % (11.6-13.7); WHITE BLOOD COUNT (AUTO) 18.2 K/uL (4.8-10.8)
--- NOTE | 2019-12-16 07:05 | NUR ---
PT IN STABLE CONDITION; WILL ENDORSE TO NEXT SHIFT FOR CONTINUITY OF CARE.
--- NOTE | 2019-12-16 07:15 | NUR ---
RECEIVED PT FROM STUDY ABROAD COORDINATOR NURSE. PT IS CURRENTLY AWAKE, LAYING IN BED. RESPIRATIONS ARE CLEAR, UNLABORED ON ROOM AIR. SKIN IS INTACT WITH IV PATENT ASYMPTOMATIC AND INFUSING PER ORDER. PT DOES NOT SHOW ANY SIGNS OF DISTRESS OR COMPLAINTS OF PAIN. SAFETY MEASURES IN PLACE AND WILL CONTINUE TO MONITOR.
[2019-12-16 08:00] VITALS: BP 134/84
[2019-12-16 08:02] LABS: ALBUMIN 1.6 g/dL (3.4-5.0)
[2019-12-16 08:04] LABS: ANION GAP 12.4 (8-16); CARBON DIOXIDE 25.4 mmol/L (21-32); POTASSIUM 3.8 mmol/L (3.5-5.1)
[2019-12-16] MEDS: ACETAMINOPHEN 325 MG TAB PO PRN (08:41)
[2019-12-16] MEDS: CYCLOBENZAPRINE 10 MG TAB PO SCH ×3 (08:41→18:56)
[2019-12-16] MEDS: ONDANSETRON 4 MG/2 ML VIAL IVP PRN (08:41)
--- NOTE | 2019-12-16 08:45 | NUR ---
ADMINISTERED MEDICATIONS PER ORDER AND TOLERATED WELL. PT STATED THAT HE IS NAUSEOUS AND WOULD LIKE SOME ZOFRAN AND REFUSED NORCO. TEMPERATURE IS 100.6 AND TYLENOL HAS BEEN ADMINISTERED. WILL RECHECK TEMPERATURE IN 1 HOUR[address] SAFETY MEASURES IN PLACE AND WILL CONTINUE TO MONITOR.
[2019-12-16] MEDS: HYDROcodone/APAP 5/325 MG 1 TAB TAB PO SCH ×3 (08:48→18:56)
--- NOTE | 2019-12-16 10:22 | NUR ---
PT IS CURRENTLY LAYING IN BED WITH BREAKFAST AT BEDSIDE. PT STATES THAT HE HAS NO APPETITE. PT IN NO SIGNS OF DISTRESS, SAFETY MEASURES IN PLACE AND WILL CONTINUE TO MONITOR.
[2019-12-16] MEDS: NACL 0.9% 1,000 ML IV SCH (12:20)
--- NOTE | 2019-12-16 12:55 | NUR ---
ADMINISTERED MEDICATIONS PER ORDER. LUNCH IS AT BEDSIDE AND PT DOES NOT WANT TO EAT. SAFETY MEASURES ION PLACE AND WILL CONTINUE TO MONITOR.
--- NOTE | 2019-12-16 13:55 | NUR ---
PT ASKED FOR WATER AND ICE, ALSO STATED THAT HE WOULD LIKE TO TAKE HIS MEDICATIONS AT THE MOMENT. WILL ADMINISTER MEDICATIONS PER ORDER.
--- NOTE | 2019-12-16 15:15 | NUR ---
ADMINISTERED MEDICATIONS PER ORDER AND TOLERATED WELL. PT STATES THAT HE WANTS TO STAY LAYING DOWN IN BED. NO SIGNS OF DISTRESS AND WILL CONTINUE TO MONITOR.
[2019-12-16 16:00] VITALS: BP 135/79
--- NOTE | 2019-12-16 17:00 | NUR ---
DR. WRAY CAME TO SEE PT AND TOLD HIM THAT HE CAN BE DISCHARGED TO HOME. HOWEVER HE THEN STATED THAT PT IS NOT ABLE TO GO HOME AT THIS TIME DUE TO FEVER THAT OCCURRED IN THE MORNING. DR. WRAY STATED THAT PATIENT MUST REMAIN AFEBRILE BEFORE HE CAN BE DISCHARGED. SAFETY MEASURES IN PLACE AND WILL CONTINUE TO MONITOR.
--- NOTE | 2019-12-16 18:23 | NUR ---
PT CALLED AND STATED THAT SHE DOES WANT HER TO GO TO A REHABILITATION FACILITY. SHE STATES THAT SHE WILL NOT BE ABLE TO TAKE CARE OF HIM IN HIS CURRENT CONDITION. WILL ENDORSE TO EVP STRATEGY NURSE. WILL CALL CASE MANAGEMENT TOMORROW MORNING TO ARRANGE REHABILITATION PLACEMENT. SPOKE TO PT AND HE IS IN AGREEMENT WELL.
--- NOTE | 2019-12-16 19:00 | NUR ---
ADMINISTERED MEDICATIONS PER ORDER AND TOLERATED WELL. PT STATES THAT HE WANTS TO GO TO SLEEP AND WOULD LIKE THE DOOR CLOSED. SAFETY MEASURES IN PLACE AND WILL ENDORSE TO STRAIGHT TOOTH GEAR GENERATOR OPERATOR NURSE FOR CONTINUITY OF CARE
--- NOTE | 2019-12-16 19:10 | NUR ---
RECEIVED REPORT FROM DAY SHIFT NURSE. PT IS SLEEPING IN SUPINE POSITION WITH NO SIGNS OF DISTRESS. PT WOKE U UP BRIEFLY WHEN CALLED BY NAME. A&O X4 AND BREATHING ON RA. IV IS PATENT AND RUNNING WITH NS AT 75 ML PER HOUR PER DOCTOR ORDER. PT IS A FALL RISK, BED WAS IN LOWEST POSITION AND CALL LIGHT WAS WITHIN REACH. WILL CONTINUE TO MONITOR.
--- NOTE | 2019-12-16 21:00 | NUR ---
PT IS SLEEPING IN A SEMI FOWLERS POSITION WITH NO SIGNS OF DISTRESS. CHEST RISE IS EQUAL AND BREATHING IS EVEN AND UNLABORED. TEMPERATURE WAS 98.7 F, BP 128/71, RR 18, HR 98, AND O2 SAT 95%. NO SIGNS OF FEVER. WILL CONTINUE TO MONITOR.
--- NOTE | 2019-12-16 23:00 | NUR ---
PT IS SLEEPING IN SEMI FOWLERS POSITION. HE AWOKE TO HIS NAME BEING CALLED AND RESPONDED APPROPRIATELY. A&OX 4 AND CHEST RISE IS SYMMETRICAL.
[2019-12-17] VITALS: BP 122/79
[2019-12-17] MEDS: PIPERACILLIN/TAZOBACTAM 3.375 GM in DEXTROSE 5% 50 ML IV SCH ×4 (00:03→17:33)
--- NOTE | 2019-12-17 00:05 | NUR ---
ZOSYN PIGGYBACK WAS HUNG IN THE RIGHT ANTECUBITAL IV LINE AT 100 ML PER HOUR PER DOCTOR ORDER. MEDICATION EDUCATION WAS GIVEN. PT BACK TO SLEEP FOLLOWING MEDICATION ADMINISTRATION. BLANKETS WERE PROVIDED FOR COMFORT.
--- NOTE | 2019-12-17 02:00 | NUR ---
ZOSYN PIGGYBACK WAS DISCONTINUED AND PATIENT WAS SLEEPING IN SEMI FOWLERS POSITION. PATIENT IS IN STABLE CONDITION.
[2019-12-17] MEDS: NACL 0.9% 1,000 ML IV SCH ×3 (02:07→17:32)
--- NOTE | 2019-12-17 02:30 | NUR ---
ENDORSED TO CHARGE NURSE FOR CONTINUITY OF CARE, WILL TAKE PHOTO OF WOUND DURING CHANGE OF LINEN, CHUX AND REPOSITIONING.
--- NOTE | 2019-12-17 03:30 | NUR ---
PT C/O OF MILD PAIN STATED ALL OVER HIS BODY. GAVE PRN TYLENOL INSTEAD. PT HAS SCHEDULED NORCO @ 9AM.
--- NOTE | 2019-12-17 03:45 | NUR ---
PT IS SLEEPING AND STABLE. NO SIGNS OF DISTRESS. BREATHING IS EVEN AND UNLABORED. WILL CONTINUE TO MONITOR.
--- NOTE | 2019-12-17 06:11 | NUR ---
ZOSYN PIGGYBACK WAS HUNG IV AT 100 ML PER HOUR PER DOCTORS ORDER. MEDICATION EDUCATION WAS PROVIDED. PT IS SLEEPING. NO SIGNS OF A FEVER. NO SWEATING, IRRITABILITY, OR COMPLAINTS OF FEELING WARM. TEMPERATURE IS 98.3.
[2019-12-17 06:56] LABS: BASOPHILS % (AUTO) 0.2 % (0.0-2.0); EOSINOPHILS # (AUTO) 0.2 K/uL (0-0.4); HEMATOCRIT 30.3 % (36-52); LYMPHOCYTES # (AUTO) 1.4 K/uL (2.0-11.5); LYMPHOCYTES % (AUTO) 7.8 % (20.5-51.1); MEAN CORPUSCULAR HEMOGLOBIN 30 pg (27-31); MEAN CORPUSCULAR HGB CONC 33 g/dL (33-37); MONOCYTES # (AUTO) 1.1 K/uL (0.8-1.0); MONOCYTES % (AUTO) 6.5 % (1.7-9.3); NEUTROPHILS # (AUTO) 14.8 K/uL (1.8-7.7); NEUTROPHILS % (AUTO) 84.5 % (42.2-75.2); PLATELET COUNT (AUTO) 573 K/uL (140-450); RED CELL DISTRIBUTION WIDTH 15.1 % (11.6-13.7); WHITE BLOOD COUNT (AUTO) 17.6 K/uL (4.8-10.8)
--- NOTE | 2019-12-17 07:10 | NUR ---
PT WAS ENDORSED TO THE DAY SHIFT NURSE FOR CONTINUITY OF CARE.
--- NOTE | 2019-12-17 07:11 | NUR ---
RECEIVED REPORT FROM [employer]RIX WORKER NURSE ROMULO. PT RESTING IN BED. AOX4, ON ROOM AIR WITH RIGHT AC #20 RUNNING NS @75ML/HR. DISCUSSED PLAN OF CARE AND PT VERBALIZED UNDERSTANDING. CALL LIGHT WITHIN REACH. NO S/S OF RESPIRATORY DISTRESS OR DISCOMFORT NOTED AT THIS TIME. WILL CONTINUE TO MONITOR.
[2019-12-17 07:17] LABS: ALBUMIN 1.7 g/dL (3.4-5.0); ANION GAP 10.6 (8-16); CARBON DIOXIDE 27.6 mmol/L (21-32); POTASSIUM 4.2 mmol/L (3.5-5.1); TOTAL BILIRUBIN 1.7 mg/dL (0.0-1.0)
[2019-12-17 08:00] VITALS: BP 139/64
[2019-12-17] MEDS: CYCLOBENZAPRINE 10 MG TAB PO SCH ×3 (09:22→17:32)
--- NOTE | 2019-12-17 09:22 | NUR ---
SCHEDULED MEDICATIONS GIVEN AND TOLERATED WELL. CALL LIGHT WITHIN REACH. NO S/S OF RESPIRATORY DISTRESS OR DISCOMFORT NOTED AT THIS TIME. WILL CONTINUE TO MONITOR.
[2019-12-17] MEDS: HYDROcodone/APAP 5/325 MG 1 TAB TAB PO SCH ×3 (09:23→17:32)
--- NOTE | 2019-12-17 11:50 | NUR ---
SCHEDULED MEDICATIONS GIVEN AND TOLERATED WELL. CALL LIGHT WITHIN REACH. NO S/S OF RESPIRATORY DISTRESS OR DISCOMFORT NOTED AT THIS TIME. WILL CONTINUE TO MONITOR.
--- NOTE | 2019-12-17 14:00 | NUR ---
PT SLEEPING IN BED. CALL LIGHT WITHIN REACH. NO S/S OF RESPIRATORY DISTRESS OR DISCOMFORT NOTED AT THIS TIME. WILL CONTINUE TO MONITOR.
--- NOTE | 2019-12-17 16:00 | NUR ---
PT CONTINUES TO SLEEP IN BED. CALL LIGHT WITHIN REACH. NO S/S OF RESPIRATORY DISTRESS OR DISCOMFORT NOTED AT THIS TIME. WILL CONTINUE TO MONITOR.
--- NOTE | 2019-12-17 17:33 | NUR ---
SCHEDULED MEDICATIONS GIVEN AND TOLERATED WELL. CALL LIGHT WITHIN REACH. NO S/S OF RESPIRATORY DISTRESS OR DISCOMFORT NOTED AT THIS TIME. WILL CONTINUE TO MONITOR.
--- NOTE | 2019-12-17 19:20 | NUR ---
RECEIVED PT ASLEEP DURING ROUNDS BUT AROUSABLE. PT A/A/OX4,SPEAKS [place].DENIES ANY PAIN,CHEST PAIN AND SOB. NOT ON TELE MONITOR. PT ON CONTACT ISOLATION , POSITIVE FOR E-COLI ON BLOOD CULTURE AND URINE CULTURE. NO SIGN AND SYMPTOMS OF DISTRESS NOTED AT THIS TIME. FALL PRECAUTION IMPLEMENTED. INSTRUCTED THE PT NOT TO GET OOB WITHOUT ASSISTANCE. PT VERBALIZED UNDERSTANDING WITH THE POC. CALL LIGHT WITHIN REACH. WILL CONTINUE POC.
--- NOTE | 2019-12-17 21:30 | NUR ---
NOTED THAT PT HAS STAT ORDERS FOR COVID HERMINIA ,BLOOD CULTURE, URINALYSIS AND URINE CULTURE. WILL PROPOSAL CONSULTANT THE COVID TEST KIT FROM THE LAB.
--- NOTE | 2019-12-17 22:15 | NUR ---
COLLECTED THE COVID HERMINIA AND URINE AND SENT IT TO THE LAB. PT HAS NO COMPLAIN AT THIS TIME. SAFETY MEASURES IN PLACED.
[2019-12-17 22:39] LABS: APPEARANCE,URINE CLEAR (CLEAR); BILIRUBIN,URINE NEGATIVE (NEGATIVE); BLOOD, URINE NEGATIVE (NEGATIVE); COLOR,URINE YELLOW (YELLOW); LEUKOCYTE ESTERASE ,URINE NEGATIVE (NEGATIVE); NITRITE, URINE NEGATIVE (NEGATIVE); PH,URINE 5.5 (5.0-9.0); UGLUCOSE NEGATIVE (NEGATIVE)
[2019-12-18] VITALS: BP 146/85
[2019-12-18] MEDS: PIPERACILLIN/TAZOBACTAM 3.375 GM in DEXTROSE 5% 50 ML IV SCH ×4 (00:02→17:37)
--- NOTE | 2019-12-18 00:20 | NUR ---
CHECKED PT VITAL SIGNS.BP- 146/85, HR- 99, RR-20,TEMP-100.0, SATING -96% ON RA. INSTRUCTED THE PT NOT TO BUNDLE UP WITH BLANKET TO COOL DOWN. COOLING MEASURE PROVIDED. WILL CONTINUE TO MONITOR.
--- NOTE | 2019-12-18 02:19 | NUR ---
MADE ROUNDS. PT AWAKE AND JUST DRINK WATER AND SPILLED IT ON HIS GOWN AND SHEET. PROVIDED THE PT WITH A NEW GOWN ,SHEET AND BLANKET. LATEST TEMPERATURE IS 99.1.
[2019-12-18] MEDS: ACETAMINOPHEN 325 MG TAB PO PRN ×2 (03:27→17:33)
[2019-12-18 04:00] VITALS: BP 133/88
--- NOTE | 2019-12-18 04:15 | NUR ---
PT CALLED ME ON THE PHONE AND STATED THAT THE PT CALLED HER AND TOLD HER THAT THE PT IS DC. PATIENT MADE AWARE THAT THE PT HAS NO ORDER TO GO HOME YET. WENT TO THE PT ROOM AND EXPLAINED TO THE PT THAT HE HAS NO DC ORDER TO GO HOME. PT VERBALIZED UNDERSTANDING.
--- NOTE | 2019-12-18 04:45 | NUR ---
PT PULLED HIS IV ACCIDENTALLY. DC/D THE OLD IV ON THE RT AC,CANNULA INTACT. PLACED A NEW IV ON THE RT FOREARM GAUGE 20.
--- NOTE | 2019-12-18 05:15 | NUR ---
PUT THE PT BACK ON PERSONAL COMPANION PER DIRECTOR OF SURGERY BLANCA. PT SHOWING SR ON PERSONAL COMPANION, HR-90'S. DROPLET AND CONTACT ISOLATION IMPLEMENTED.CALL LIGHT WITHIN REACH.
--- NOTE | 2019-12-18 06:19 | NUR ---
PT STABLE NO ACUTE EVENTS OVER NIGHT. NOT ON ANY DISTRESS AT THIS TIME. ALL NEEDS ATTENDED.CALL LIGHT WITHIN REACH. WILL ENDORSE THE PT TO THE ONCOMING RN FOR CONTINUITY OF CARE.
[2019-12-18 07:09] LABS: BASOPHILS # (AUTO) 0.1 K/uL (0.00-0.22); BASOPHILS % (AUTO) 0.3 % (0.0-2.0); EOSINOPHILS # (AUTO) 0.2 K/uL (0-0.4); HEMATOCRIT 29.8 % (36-52); HEMOGLOBIN 9.6 g/dL (12.0-18.0); LYMPHOCYTES # (AUTO) 1.4 K/uL (2.0-11.5); MEAN CORPUSCULAR HEMOGLOBIN 29 pg (27-31); MEAN CORPUSCULAR HGB CONC 32 g/dL (33-37); MONOCYTES % (AUTO) 6.4 % (1.7-9.3); NEUTROPHILS # (AUTO) 13.2 K/uL (1.8-7.7); NEUTROPHILS % (AUTO) 83.3 % (42.2-75.2); PLATELET COUNT (AUTO) 757 K/uL (140-450); RED BLOOD CELL COUNT(AUTO) 3.35 MIL/uL (4.20-6.10); RED CELL DISTRIBUTION WIDTH 14.6 % (11.6-13.7); WHITE BLOOD COUNT (AUTO) 15.8 K/uL (4.8-10.8)
[2019-12-18 07:20] LABS: ANION GAP 12.5 (8-16); CARBON DIOXIDE 26.3 mmol/L (21-32); CREATININE 0.8 mg/dL (0.6-1.3); POTASSIUM 3.8 mmol/L (3.5-5.1)
--- NOTE | 2019-12-18 07:25 | NUR ---
RECEIVED REPORT FROM NIGHT NURSE FOR CONTINUITY OF CARE, PT IS STABLE, NO SIGNS OF DISTRESS NOTED, RESPIRATIONS ARE EVEN AND UNLABORED ON ROOM AIR, BED IN LOW POSITION, SAFETY MEASURES IN PLACE, WILL INTRODUCE SELF, UPDATE WHITEBOARD, CALL LIGHT WITHIN REACH.
[2019-12-18 08:00] VITALS: BP 114/74
[2019-12-18] MEDS: CYCLOBENZAPRINE 10 MG TAB PO SCH ×3 (08:39→17:29)
[2019-12-18] MEDS: HYDROcodone/APAP 5/325 MG 1 TAB TAB PO SCH ×3 (08:39→17:33)
[2019-12-18] MEDS: NACL 0.9% 1,000 ML IV SCH (08:40)
--- NOTE | 2019-12-18 08:43 | NUR ---
ADMINISTERED SCHEDULED MEDICATION, MEDICATION EDUCATION GIVEN, PT VERBALIZED UNDERSTANDING, PT TOLERATED MEDICATION WELL, PT IS STABLE, NO SIGNS OF DISTRESS NOTED, RESPIRATIONS ARE EVEN AND UNLABORED ON ROOM AIR, CALL LIGHT WITHIN REACH.
--- NOTE | 2019-12-18 11:00 | NUR ---
PT RESTING IN BED, NO SIGNS OF DISTRESS NOTED, RESPIRATIONS ARE EVEN AND UNLABORED ON ROOM AIR, CALL LIGHT WITHIN REACH.
[2019-12-18 12:00] VITALS: BP 144/78
--- NOTE | 2019-12-18 12:20 | NUR ---
ADMINISTERED SCHEDULED MEDICATION, MEDICATION EDUCATION GIVEN, PT VERBALIZED UNDERSTANDING, PT TOLERATED MEDICATION WELL, PT IS STABLE, CALL LIGHT WITHIN REACH.
--- NOTE | 2019-12-18 14:51 | NUR ---
12/18/19 RD FOLLOW UP COMPLETED PLEASE REFER TO NUTRITION ASSESSMENT UNDER CARE ACTIVITY FOR ESTIMATED NUTRITIONAL NEEDS. 1. CONTINUE REGULAR DIET TOLERATED 2. RECOMMEND ENSURE BID 3. ENCOURAGE PO INTAKE 4. RD TO FOLLOW-UP 2-3 DAYS, HIGH RISK FERNANDO BRIZUELA, RD
--- NOTE | 2019-12-18 15:00 | NUR ---
PT IS STABLE, NO SIGNS OF DISTRESS NOTED, CALL LIGHT WITHIN REACH.
[2019-12-18 16:00] VITALS: BP 128/80
[2019-12-18] MEDS ORDERED: ZOS3.375I IV (17:43)
--- NOTE | 2019-12-18 17:44 | NUR ---
ADMINISTERED SCHEDULED MEDICATION, ADMINISTERED TYLENOL FOR TEMP 100.2, MEDICATION GIVEN, PT TOLERATED WELL, PT IS STABLE, CALL LIGHT WITHIN REACH.
--- NOTE | 2019-12-18 18:37 | NUR ---
[facility], REPORT GIVEN TO JANIS, PT DISCHARGED WITH INSTRUCTIONS, PT REFUSED PNA VACCINE, PT IS COVID NEGATIVE X2, PT IS STABLE, NO SIGNS OF DISTRESS NOTED.
== END 2019-12-18 18:41 | DRG 872 ==
LOC: MED 23:20 → MTU 12-11 04:03 → EEVIPCON 12-11 04:03 → MTU 12-11 04:39
PROVIDERS: ADMIT Internal Medicine Pulmonary Disease; ATTEND Internal Medicine Pulmonary Disease
DX: A41.51 Sepsis due to Escherichia coli [E. coli] (principal); N39.0 Urinary tract infection, site not specified; E87.2 Acidosis; Z16.12 Extended spectrum beta lactamase (ESBL) resistance; N28.9 Disorder of kidney and ureter, unspecified; G89.29 Other chronic pain; Z87.891 Personal history of nicotine dependence; F11.10 Opioid abuse, uncomplicated; K57.90 Diverticulosis of intestine, part unspecified, without perforation or abscess without bleeding; I95.9 Hypotension, unspecified; Z20.828 Contact with and (suspected) exposure to other viral communicable diseases
CPT/HCPCS: 36415; 71045; 80048; 80053; 81001; 81003; 82550; 83605; 83615; 83880; 84484; 85025; 85610; 85730; 87040; 87081; 87086; 87186; 93005; 96361; 96365; 97110; 97112; 97161-GP; 97530; 99291; J0696; J2405; J2543; J3475; J7030; J7060; Q0092; U0003-CS